=== PATIENT | male | born 1970 | race Caucasian/White ===

== ENCOUNTER 2018-02-07 23:12 | Emergency (ER) | payer SELFPAY ==
[~2018-02-07] VITALS: Ht 160 cm; Wt 71.3 kg
[2018-02-07] MEDS ORDERED: GLIP5TAB3 MT (23:43)
[2018-02-07] MEDS ORDERED: METF500T MT (23:43)
[2018-02-08] MEDS ORDERED: IBUPROFEN 600MG TABLET PO STA (00:13)
[2018-02-08 01:03] LABS: HEMATOCRIT. 43.4 % (42.0-52.0); HEMOGLOBIN. 15.2 g/dL (14.0-18.0); MEAN CORPUSCULAR HEMOGLOBIN 29.5 pg (28.0-32.0); MEAN CORPUSCULAR VOLUME 84.4 fL (80.0-94.0); RED BLOOD CELL COUNT 5.14 mill/uL (4.7-6.1); RED CELL DISTRIBUTION WIDTH 12.7 % (11.6-14.6)
[2018-02-08 01:11] LABS: PLATELET 215 x1000/uL (130-400)
[2018-02-08 01:12] LABS: CHLORIDE 103 mEq/L (98-107); MEAN PLATELET VOLUME 8.4 fl (7.4-10.4)
[2018-02-08 01:51] LABS: ATYPICAL LYMPHOCYTES 3; PLATELET ESTIMATE NORMAL
[2018-02-08 05:55] VITALS: BP 127/85
== END 2018-02-08 05:57 | disposition home or self-care (01) ==
LOC: ER 23:12
DX: R07.89 Other chest pain (principal); E11.65 Type 2 diabetes mellitus with hyperglycemia; I10 Essential (primary) hypertension; F17.200 Nicotine dependence, unspecified, uncomplicated; Z79.84 Long term (current) use of oral hypoglycemic drugs
CPT/HCPCS: 36415; 71045; 84484; 93005; 99284

== ENCOUNTER 2019-11-16 20:14 | Emergency (ER) | payer SELFPAY ==
[~2019-11-16] VITALS: Ht 165.1 cm; Wt 73.0 kg
[~2019-11-16 20:14] MED LIST: GLIP5TAB3 MT; METF500T MT
[2019-11-16] MEDS ORDERED: ALPRAZOLAM 0.5 MG TABLET PO NR (21:00)
[2019-11-16] MEDS ORDERED: LABETALOL HCL 100MG TABLET PO NR (21:00)
[2019-11-16] MEDS ORDERED: LABETALOL 5MG/ML SYR 20 MG/4 ML SYRINGE IV NR (21:00)
[2019-11-16 23:00] VITALS: BP 149/106
== END 2019-11-16 23:21 | disposition home or self-care (01) ==
LOC: ER 20:58
DX: I16.0 Hypertensive urgency (principal); F41.9 Anxiety disorder, unspecified; E11.65 Type 2 diabetes mellitus with hyperglycemia; I10 Essential (primary) hypertension; E78.00 Pure hypercholesterolemia, unspecified; Z86.73 Personal history of transient ischemic attack (TIA), and cerebral infarction without residual deficits
CPT/HCPCS: 82962; 99284